=== PATIENT | male | born 1975 | race Caucasian/White ===

== ENCOUNTER 2018-08-15 21:11 | Emergency (ER) | payer OTHER ==
[~2018-08-15] VITALS: Ht 180.3 cm; Wt 74.8 kg
[2018-08-15] MEDS ORDERED: KEFLEX500 M1 PO (21:36)
[2018-08-15] MEDS ORDERED: PREDNISONE 20 M20 M1 PO (21:36)
[2018-08-15 22:25] VITALS: BP 121/81
== END 2018-08-15 22:25 | disposition home or self-care (01) ==
LOC: M.ERS 21:11
DX: L30.9 Dermatitis, unspecified (principal); F17.210 Nicotine dependence, cigarettes, uncomplicated